=== PATIENT | male | born 1960 | race Caucasian/White ===

== ENCOUNTER 2020-12-05 16:38 | Emergency (ER) | payer MEDICAID ==
[~2020-12-05] VITALS: Ht 180.3 cm; Wt 62.0 kg
[~2020-12-05 16:38] MED LIST: NO HOME MEDS
[2020-12-05 18:25] VITALS: BP 157/98
[2020-12-05 18:58] LABS: BASOPHILS # (AUTO) 0.1 X10'3 (0-0.2); BASOPHILS % (AUTO) 0.8 % (0-1); EOSINOPHILS # (AUTO) 0.2 X10'3 (0-0.9); EOSINOPHILS % (AUTO) 2.3 % (0-6); HEMATOCRIT 39.1 % (42.0-52.0); HEMOGLOBIN 12.8 g/dl (14.0-17.9); LYMPHOCYTES # (AUTO) 2.1 X10'3 (1.1-4.8); LYMPHOCYTES % (AUTO) 26.3 % (21-51); MEAN CORPUSCULAR HEMOGLOBIN 27.5 PG (27.0-31.0); MEAN CORPUSCULAR HGB CONC 32.9 g/dL (33.0-36.5); MEAN CORPUSCULAR VOLUME 83.8 FL (78-98); MEAN PLATELET VOLUME 7.5 FL (7.4-10.4); MONOCYTES # (AUTO) 0.8 X10'3 (0-0.9); MONOCYTES % (AUTO) 9.7 % (2-12); NEUTROPHILS # (AUTO) 4.8 X10'3 (1.8-7.7); NEUTROPHILS % (AUTO) 60.9 % (42-75); PLATELET COUNT 472 X10'3 (140-440); RED BLOOD COUNT 4.66 X10'6 (4.70-6.10); RED CELL DISTRIBUTION WIDTH 18.3 % (11.5-14.5); WHITE BLOOD COUNT 7.9 X10'3 (4.5-11.0)
[2020-12-05 19:10] LABS: PARTIAL THROMBOPLASTIN TIME 27 SECONDS (22-32)
[2020-12-05 19:23] LABS: ALANINE AMINOTRANSFERASE 20 U/L (12-78); ALBUMIN 3.9 G/DL (3.4-5.0); ALBUMIN/GLOBULIN RATIO 0.9 (1.1-1.5); ALKALINE PHOSPHATASE 51 IU/L (46-116); ANION GAP 10 (8-16); ASPARTATE AMINO TRANSFERASE 18 U/L (10-37); BILIRUBIN,TOTAL 0.3 MG/DL (0.1-1.0); BLOOD UREA NITROGEN 8 MG/DL (7-18); BUN/CREATININE RATIO 6.2 (5.4-32.0); CALCIUM 9.2 MG/DL (8.5-10.1); CHLORIDE 98 MMOL/L (99-107); ETHANOL 0.014 GM/DL (0.0-0.010); GLUCOSE 88 MG/DL (70-104); LIPASE 76 U/L (73-393); POTASSIUM 4.4 MMOL/L (3.5-5.1); SODIUM 133 MMOL/L (135-145); TOTAL CARBON DIOXIDE 24.9 MMOL/L (24-32); TOTAL PROTEIN 8.2 G/DL (6.4-8.2); eGFR 56 ML/MIN
[2020-12-05] MEDS ORDERED: iohexol 300mg/ml 100ml inj. ONE (19:52)
== END 2020-12-05 23:23 | disposition home or self-care (01) ==
LOC: ER 16:38
DX: R91.8 Other nonspecific abnormal finding of lung field (principal); R07.89 Other chest pain; R10.84 Generalized abdominal pain; F10.10 Alcohol abuse, uncomplicated; F17.200 Nicotine dependence, unspecified, uncomplicated; Z72.89 Other problems related to lifestyle; Y90.0 Blood alcohol level of less than 20 mg/100 ml
CPT/HCPCS: 36415; 71045; 71260; 74177; 80053; 80320; 83690; 85025; 85610; 85730; 99285; Q9967

== ENCOUNTER 2021-02-21 11:09 | Day surgery (SDC) | payer MEDICAID ==
[~2021-02-21] VITALS: Ht 177.8 cm; Wt 61.0 kg
[2021-02-21] MEDS ORDERED: normal saline 1000ml 1,000 ML IV SCH (12:00)
[2021-02-21 12:18] VITALS: BP 114/63
[2021-02-21] MEDS ORDERED: HYDR-3968 PO (13:27)
[2021-02-21] MEDS ORDERED: heparin sodium, porcine/PF 100unit/ml 5ML syringe ONE (13:45)
[2021-02-21] MEDS ORDERED: fentaNYL/PF 50MCG/1 ML 2ML syringe ONE ×2 (13:46→14:27)
[2021-02-21] MEDS ORDERED: midazolam 1 mg/ML 2ml injection ONE ×2 (13:46→14:26)
[2021-02-21] MEDS ORDERED: LIDOcaine 1% W/epiNEPHrine 1:200,000 10ml vial ONE (13:46)
[2021-02-21 14:55] VITALS: BP 128/85
[2021-02-21 15:10] VITALS: BP 138/82
[2021-02-21 15:25] VITALS: BP 133/87
[2021-02-21 15:40] VITALS: BP 135/84
== END 2021-02-21 16:00 | disposition home or self-care (01) ==
LOC: SSTAY O 11:09
PROVIDERS: ATTEND Preventive Medicine Aerospace Medicine
DX: C7A.090 Malignant carcinoid tumor of the bronchus and lung (principal); Z20.822 Contact with and (suspected) exposure to COVID-19; F17.290 Nicotine dependence, other tobacco product, uncomplicated; Z79.899 Other long term (current) drug therapy
CPT/HCPCS: 36415; 36561; 76937; 77001; 87635; 99152; 99153; C1788; C9803; J1642; J2250; J3010; U0003; C1769; C1894